=== PATIENT | female | born 1955 | race Caucasian/White ===

== ENCOUNTER 2016-06-24 12:52 | Emergency (ER) | payer MEDICAID ==
[~2016-06-24] VITALS: Ht 165.1 cm; Wt 97.5 kg
--- NOTE | 2016-06-24 13:00 | NUR ---
PT BIBA FOR GEN WEAKNESS. PT AAOX3. NOTED WITH MULTIPLE SKIN ISSUES ON BLE- PT REPORTEDLY 'TREATING' IT HERSELF. VSS. SEEN BY PA. SHAFFER AND COMFORT MEASURES PROVIDED. WILL MONITOR.
--- NOTE | 2016-06-24 13:15 | NUR ---
ENVIRONMENTAL COMPLIANCE MANAGER AT FOR BLOOD DRAW.
[2016-06-24 13:52] LABS: BASOPHILS # (AUTO) 0.1 /CMM (0.0-0.2); BASOPHILS % (AUTO) 0.5 % (0.0-2.0); EOSINOPHILS # (AUTO) 0.4 /CMM (0.0-0.7); EOSINOPHILS % (AUTO) 2.9 % (0.0-6.0); HEMATOCRIT 23 % (33-45); HEMOGLOBIN 7.4 g/dL (11.5-14.8); LYMPHOCYTES # (AUTO) 1.9 /CMM (0.8-4.8); LYMPHOCYTES % (AUTO) 13.9 % (20.0-44.0); MEAN CORPUSCULAR HEMOGLOBIN 32 PG (26.0-33.0); MEAN CORPUSCULAR HGB CONC 32 g/dl (31.0-36.0); MEAN CORPUSCULAR VOLUME 100 fL (82-100); MONOCYTES # (AUTO) 1.8 /CMM (0.1-1.30); MONOCYTES % (AUTO) 12.9 % (2.0-12.0); NEUTROPHILS # (AUTO) 9.7 /CMM (1.8-8.9); NEUTROPHILS % (AUTO) 69.8 % (43.0-81.0); PLATELET COUNT (AUTO) 558 /CMM (150-450); RDW COEFFICIENT OF VARIATION 17.1 (11.5-15.0); RED BLOOD CELL COUNT(AUTO) 2.29 MIL/uL (4.0-5.2); WHITE BLOOD COUNT (AUTO) 13.9 K/uL (4.3-11.0)
[2016-06-24 13:53] LABS: CALCIUM, SERUM 9.2 mg/dL (8.5-10.1); CREATININE 6.4 mg/dL (0.6-1.3); POTASSIUM 5.3 mmol/L (3.5-5.1)
[2016-06-24 13:59] LABS: ALBUMIN 2.2 g/dL (3.4-5.0); BILIRUBIN,DIRECT 0.1 mg/dL (0.0-0.2); BILIRUBIN,TOTAL 0.4 mg/dL (0.2-1.0); TOTAL PROTEIN, SERUM 5.9 g/dL (6.4-8.2)
[2016-06-24 14:09] LABS: APPEARANCE,URINE Clear (CLEAR); BLOOD, URINE Trace-intact Ery/uL (NEGATIVE); COLOR,URINE Yellow (YELLOW); KETONES,URINE Negative (NEGATIVE); LEUKOCYTE ESTERASE ,URINE Negative (NEGATIVE); NITRITE, URINE Negative (NEGATIVE); PROTEIN,URINE >=300 mg/dl (NEGATIVE); UROBILINOGEN,URINE 0.2 EU/dL (0.2)
[2016-06-24 14:11] LABS: BILIRUBIN,URINE SMALL (NEGATIVE); UGLUCOSE 100 MG/DL mg/dL (NEGATIVE)
[2016-06-24 14:14] LABS: ADD URINE CULTURE NO; BACTERIA,URINE Few /HPF (None Seen); SQUAMOUS EPITHELIAL CELL,UR Few /HPF (None Seen)
--- NOTE | 2016-06-24 14:20 | NUR ---
Patient is resting comfortably in bed with eyes closed. Easily aroused. VSS
--- NOTE | 2016-06-24 15:10 | NUR ---
Patient discharged to home in stable condition. Written and verbal after care instructions given. Patient verbalizes understanding of instruction. Addendum: 06/24/16 at 1554 by JETHRO PT REQUESTS TO BE WHEELED OUT TO US RENAL ACROSS THE [address]RE[address]. REFUSES AMBULANCE. CHARGE NURSE GENER MADE AWARE.
--- NOTE | 2016-06-24 15:40 | NUR ---
PT SAFELY WHEELED OUT TO US RENAL ASSISTED BY RN AND [facility] KAY STITCHER.
[2016-06-24 15:55] VITALS: BP 96/65
== END 2016-06-24 16:19 | disposition home or self-care (01) ==
LOC: ER 12:55
DX: I12.0 Hypertensive chronic kidney disease with stage 5 chronic kidney disease or end stage renal disease (principal); E11.22 Type 2 diabetes mellitus with diabetic chronic kidney disease; N18.6 End stage renal disease; E11.622 Type 2 diabetes mellitus with other skin ulcer; L97.929 Non-pressure chronic ulcer of unspecified part of left lower leg with unspecified severity; L98.499 Non-pressure chronic ulcer of skin of other sites with unspecified severity; Z88.0 Allergy status to penicillin; Z98.890 Other specified postprocedural states
CPT/HCPCS: 36415; 80053-TC; 80076-TC; 81000-TC; 85025-TC; A4606; Z7610

== ENCOUNTER 2016-08-27 23:37 | Emergency (ER) | payer OTHER ==
[~2016-08-27] VITALS: Ht 165.1 cm; Wt 117.0 kg
--- NOTE | 2016-08-27 23:40 | NUR ---
TO BED 8 A 61 YO FEMALE PT BIBA#78 PT C/O BILATERAL LEG PAIN S/P GLF 1 HOUR AGO. PATIENT IS AAOX4, NO S/S OF ACUTE DISTRESS NOTED. VSS. BREATHING EVEN AND UNLABORED. DISTAL CMS IS INTACT. NOTED WITH WOUND VAC ON THE LEFT HIP. PER PATIENT SHE HAS MISSED A DAY OR 2 OF DIALYSIS. TELE MONITORING ON. GOWNED. SAFETY AND COMFORT MEAUSURES RENDERED. AWAITING FOR ER MD REYNOSO. Addendum: 08/28/16 at 0324 by KAVON wound vac on the left outer thigh.
[2016-08-28 00:08] LABS: BASOPHILS % (AUTO) 0.1 % (0.0-2.0); EOSINOPHILS # (AUTO) 0.2 /CMM (0.0-0.7); EOSINOPHILS % (AUTO) 1.1 % (0.0-6.0); HEMATOCRIT 23 % (33-45); HEMOGLOBIN 7.3 g/dL (11.5-14.8); LYMPHOCYTES % (AUTO) 5.1 % (20.0-44.0); MEAN CORPUSCULAR HEMOGLOBIN 30 PG (26.0-33.0); MEAN CORPUSCULAR HGB CONC 32 g/dl (31.0-36.0); MEAN CORPUSCULAR VOLUME 94 fL (82-100); MONOCYTES % (AUTO) 10.3 % (2.0-12.0); NEUTROPHILS % (AUTO) 83.4 % (43.0-81.0); PLATELET COUNT (AUTO) 576 /CMM (150-450); RDW COEFFICIENT OF VARIATION 22.7 (11.5-15.0); RED BLOOD CELL COUNT(AUTO) 2.43 MIL/uL (4.0-5.2); WHITE BLOOD COUNT (AUTO) 19.2 K/uL (4.3-11.0)
--- NOTE | 2016-08-28 00:15 | NUR ---
patient to radiology.
[2016-08-28 00:19] LABS: CALCIUM, SERUM 8.9 mg/dL (8.5-10.1); CARBON DIOXIDE 29 mmol/L (21-32); CHLORIDE 97 mmol/L (98-107); GLUCOSE 51 mg/dL (74-106); SODIUM SERUM 136 mmol/L (136-145); UREA NITROGEN, BLOOD 47 mg/dL (7-18)
[2016-08-28 00:20] LABS: INR 1.17 (0.87-1.13); PROTHROMBIN TIME 12.7 SECS (9.5-12.7)
[2016-08-28 00:24] LABS: ALANINE AMINOTRANSFERASE 22 U/L (12-78); ALBUMIN 2.2 g/dL (3.4-5.0); ALKALINE PHOSPHATASE 123 U/L (46-116); ASPARTATE AMINOTRANSFERASE 15 U/L (15-37); BILIRUBIN,DIRECT 0.1 mg/dL (0.0-0.2); BILIRUBIN,TOTAL 0.4 mg/dL (0.2-1.0); TOTAL PROTEIN, SERUM 6.7 g/dL (6.4-8.2)
[2016-08-28 00:27] LABS: TROPONIN I < 0.017 ng/mL (0.00-0.056)
[2016-08-28] MEDS ORDERED: LEVOFLOXACIN 750 MG /D5W 150ML PIGGYBACK IV ONE (02:00)
[2016-08-28] MEDS ORDERED: AZTREONAM 1 G in IV NS 0.9% 100 ML IV ONE (02:00)
[2016-08-28] MEDS ORDERED: AZTREONAM 1 G VIAL ONE (02:01)
[2016-08-28] MEDS ORDERED: IV NS 0.9% 100 ML IV ONE (02:01)
[2016-08-28] MEDS ORDERED: IV SET PRIMARY PUMP SET 1 EA INFUS.SET MC ONE (02:01)
[2016-08-28] MEDS ORDERED: LEVOFLOXACIN 750 MG /D5W 150ML 150 ML IV ONE (02:01)
--- NOTE | 2016-08-28 03:07 | NUR ---
PT CAPPED TO [facility]. ACCEPTED BY DR. CANTOR. USE AMUBLANCE AUTHORIZATION CODE [id number] [facility].
--- NOTE | 2016-08-28 03:10 | NUR ---
DR CANTOR CALLED AND MD CRAVEN TALKING TO
--- NOTE | 2016-08-28 03:46 | NUR ---
[facility] FA[facility] THE FAC[facility] TO HER AND WAITING FOR A CALL BACK WITH THE ROOM NUMBER, MD CRAVEN MADE AWARE
--- NOTE | 2016-08-28 04:54 | NUR ---
PATIENT ROOM IS 6953 AND USE EXT [id number] FOR REPORT
--- NOTE | 2016-08-28 05:12 | NUR ---
TALKED TO JAMAL FROM [facility], ETA IS 15 MINUTES
--- NOTE | 2016-08-28 05:14 | NUR ---
Report given to Steffanie CORNELL in [facility] for admission and [facility].
--- NOTE | 2016-08-28 06:11 | NUR ---
Report given to emt's for winifred and transfer, patient picked up by 2 [facility] ambulance. vss. patient aaox3, no further complaints.
[2016-08-28 06:12] VITALS: BP 99/54
== END 2016-08-28 06:14 | disposition short-term general hospital (02) ==
LOC: ER 23:38
DX: J18.9 Pneumonia, unspecified organism (principal); I12.0 Hypertensive chronic kidney disease with stage 5 chronic kidney disease or end stage renal disease; E11.22 Type 2 diabetes mellitus with diabetic chronic kidney disease; E11.622 Type 2 diabetes mellitus with other skin ulcer; L98.499 Non-pressure chronic ulcer of skin of other sites with unspecified severity; N18.6 End stage renal disease; N17.9 Acute kidney failure, unspecified; D64.9 Anemia, unspecified; J90 Pleural effusion, not elsewhere classified; I48.92 Unspecified atrial flutter; L98.8 Other specified disorders of the skin and subcutaneous tissue; Z99.2 Dependence on renal dialysis; Z88.0 Allergy status to penicillin
CPT/HCPCS: 36415 ×2; 71010; 72170; 73560 ×2; 73600 ×2; 80048; 80076; 82550; 83605 ×2; 84484; 85025; 85730; 86850; 87040 ×2; 93005; 96365; 96367; 99285; A4606; J1956; J3490; J7030; Z7610